=== PATIENT | male | born 1950 | race African-American/Black ===

== ENCOUNTER 2025-02-17 17:04 | Emergency (ER) | payer OTHER, MEDICAID ==
[~2025-02-17] VITALS: Ht 182.9 cm; Wt 95.0 kg
[2025-02-17 17:08] VITALS: TEMP 37.1; O2SAT 96
[2025-02-17] MEDS ORDERED: CLIN-116 MT (17:17)
[2025-02-17] MEDS ORDERED: IBUP-2029 MT (17:17)
[2025-02-17] MEDS ORDERED: CLIN-194 MT (17:17)
[2025-02-17 17:58] VITALS: BP 136/84; PULSE 72; RESP 18
[2025-02-17] MEDS: IBUPROFEN 600MG TABLET PO ONE (17:58)
== END 2025-02-17 18:06 | disposition home or self-care (01) ==
LOC: ER 17:04
DX: K61.1 Rectal abscess (principal); I10 Essential (primary) hypertension; Z88.0 Allergy status to penicillin
CPT/HCPCS: 99283

== ENCOUNTER 2025-02-18 22:11 | Inpatient (IN) | payer OTHER, MEDICAID, MEDICARE ==
[~2025-02-18] VITALS: Ht 182.9 cm; Wt 83.0 kg
[~2025-02-18 22:11] MED LIST: CLIN-116 MT; CLIN-194 MT; IBUP-2029 MT
[2025-02-18] MEDS: ACETAMINOPHEN 325MG TABLET PO ONE (23:01)
[2025-02-18 23:14] LABS: BASOPHILS % 0.2 % (0.0-2.0); DIFFERENTIAL COMMENT 0; EOSINOPHILS % 1.3 % (0.0-5.0); HEMATOCRIT. 34.2 % (42.0-52.0); HEMOGLOBIN. 10.5 g/dL (14.0-18.0); MEAN CORPUSCULAR HEMOGLOBIN 22.3 pg (28.0-32.0); MEAN CORPUSCULAR HGB CONC 30.7 g/dL (31.0-37.0); MEAN CORPUSCULAR VOLUME 72.9 fL (80.0-94.0); MEAN PLATELET VOLUME 7.2 fl (7.4-10.4); MONOCYTES % 7.9 % (2.0-8.0); NEUTROPHILS % 78.6 % (40.0-76.0); PLATELET 227 x1000/uL (130-400); WHITE BLOOD COUNT 10.5 x1000/uL (4.5-11.0)
[2025-02-18 23:23] LABS: POTASSIUM 3.6 mEq/L (3.5-5.1)
[2025-02-18 23:25] LABS: CALCIUM 8.6 mg/dL (8.7-10.4)
[2025-02-18 23:29] LABS: CREATININE 1.9 mg/dL (0.6-1.3)
[2025-02-19] MEDS: CLINDAMYCIN HCL 150MG CAPSULE PO ONE (02:12)
[2025-02-19] MEDS: CLINDAMYCIN HCL 150MG CAPSULE PO SCH (02:12)
[2025-02-19 07:56] LABS: CLARITY URINE CLEAR (CLEAR); COLOR URINE YELLOW (YELLOW); GLUCOSE URINE NEGATIVE (NEGATIVE); KETONES URINE NEGATIVE (NEGATIVE); LEUKOCYTE ESTERASE URINE NEGATIVE (NEGATIVE); NITRITE URINE NEGATIVE (NEGATIVE); OCCULT BLOOD URINE NEGATIVE (NEGATIVE); PH URINE 5.5 (4.5-8.0); PROTEIN URINE TRACE (NEGATIVE); SPECIFIC GRAVITY URINE 1.009 (1.005-1.030); UROBILINOGEN URINE 0.2 E.U./dL (0.2-1.0)
[2025-02-19] MEDS: SODIUM CHLORIDE 0.9% 1,000 ML IV ONE (08:04)
[2025-02-19 08:14] LABS: BACTERIA URINE NONE SEEN; RBC URINE NONE SEEN /hpf (0-2); SQUAMOUS EPITHELIAL CELL URINE NONE SEEN /lpf (RARE/1+); WBC URINE 0-2 /hpf (0-2); YEAST URINE NONE SEEN
[2025-02-19] MEDS ORDERED: DOCUSATE SODIUM 100MG CAPSULE PO PRN (10:45)
[2025-02-19] MEDS ORDERED: CEFEPIME 1GM IN DEXT 5% 50ML IV SCH (10:45)
[2025-02-19] MEDS ORDERED: IPRATROPIUM/ALBUTEROL 0.5-3(2.5)MG/3ML NEB HHN PRN (10:45)
[2025-02-19] MEDS ORDERED: ONDANSETRON HCL 4MG/2ML INJ IV PRN (10:45)
[2025-02-19] MEDS ORDERED: SODIUM CHLORIDE 0.9% 1,000 ML IV SCH (10:45)
[2025-02-19] MEDS ORDERED: GUAIFENESIN 200MG/10ML SUGAR FREE UDC PO PRN (10:45)
[2025-02-19] MEDS ORDERED: MAGNESIUM/ALUMINUM HYDROXIDE/SIMETHICONE 30ML UDC PO PRN (10:45)
[2025-02-19] MEDS ORDERED: HYDROCODONE/ACETAMINOPHEN 5/325MG TABLET PO PRN (10:45)
[2025-02-19] MEDS ORDERED: ACETAMINOPHEN 325MG TABLET PO PRN ×2 (10:45)
[2025-02-19 11:00] VITALS: BP 134/65; PULSE 100; RESP 18; TEMP 36.4
[2025-02-19] MEDS: AMLODIPINE 10MG TABLET PO SCH (11:00)
[2025-02-19] MEDS ORDERED: NALOXONE HCL 0.4MG/ML VIAL IV PRN (11:00)
[2025-02-19] MEDS: ENOXAPARIN 40MG/0.4ML SYR SUBCUT SCH (11:30)
[2025-02-19 12:00] VITALS: BP 148/87; PULSE 95; RESP 17; TEMP 36.1; O2SAT 98
[2025-02-19] MEDS: LEVOFLOXACIN 750MG PREMIX 150 ML IV SCH (14:13)
[2025-02-19] MEDS: METRONIDAZOLE 500 MG PREMIX 100 ML IV SCH (14:13)
[2025-02-19] MEDS: VANCOMYCIN 2GM PMX (XELLIA) 400 ML IV NR (14:13)
[2025-02-19 14:17] LABS: IRON 28 ug/dL (65-175)
[2025-02-19 14:18] LABS: URIC ACID 10.9 mg/dL (3.7-9.2)
[2025-02-19 14:19] LABS: PHOSPHORUS 2.6 mg/dL (2.5-4.9); TROPONIN I HIGH SENSITIVITY 10 ng/L (3.0-53)
[2025-02-19] MEDS: MORPHINE SULFATE 2 MG/ML INJ (NOT FOR IM USE) IV NR (14:19)
[2025-02-19 14:20] LABS: TOTAL IRON BINDING CAPACITY 280 ug/dl (250-425)
[2025-02-19 14:21] LABS: ALANINE AMINOTRANSFERASE 32 IU/L (10-49); ALBUMIN 3.6 g/dL (3.2-4.8); ASPARTATE AMINOTRANSFERASE 28 IU/L (<34); BILIRUBIN DIRECT 0.2 mg/dL (<=3.0); BILIRUBIN TOTAL 0.4 mg/dL (0.1-1.0)
[2025-02-19] MEDS: CLONIDINE 0.1MG TABLET PO PRN (14:29)
[2025-02-19 14:34] LABS: FOLIC ACID (FOLATE) SERUM 7.45 ng/mL (>5.38); VITAMIN B12 SERUM 322 pg/mL (211-911)
[2025-02-19 14:35] LABS: FERRITIN 18 ng/mL (22-322)
[2025-02-19 14:47] LABS: HEPATITIS B SURFACE ANTIGEN NEGATIVE (Negative)
[2025-02-19 15:07] LABS: HEPATITIS A AB IGM NEGATIVE (Negative)
[2025-02-19 15:08] LABS: HEPATITIS B CORE AB IGM NEGATIVE (Negative); HEPATITIS C AB NON REACTIVE (Neg) (Negative)
[2025-02-19 17:25] LABS: GLUCOSE URINE NEGATIVE (NEGATIVE); KETONES URINE NEGATIVE (NEGATIVE)
[2025-02-19 17:36] LABS: SODIUM URINE RANDOM 118 mEq/L
[2025-02-19 17:43] LABS: *AMPHETAMINES SCREEN URINE NEGATIVE (NEGATIVE); *BARBITURATES SCREEN URINE NEGATIVE (NEGATIVE); *BENZODIAZEPINES SCREEN URINE NEGATIVE (NEGATIVE); *COCAINE SCREEN URINE NEGATIVE (NEGATIVE); METHADONE URINE SCREEN NEGATIVE (NEGATIVE)
[2025-02-19 17:44] LABS: CANNABINOID URINE SCREEN NEGATIVE (NEGATIVE); ECSTASY MDMA SCREEN URINE NEGATIVE (NEGATIVE); OPIATES URINE SCREEN NEGATIVE (NEGATIVE); PHENCYCLIDINE URINE SCREEN NEGATIVE (NEGATIVE)
[2025-02-19 18:02] LABS: OSMOLALITY URINE 433 mOsm/kg (500-850)
[2025-02-19 18:13] LABS: CLARITY URINE CLEAR (CLEAR); COLOR URINE STRAW (YELLOW); LEUKOCYTE ESTERASE URINE NEGATIVE (NEGATIVE); NITRITE URINE NEGATIVE (NEGATIVE); OCCULT BLOOD URINE NEGATIVE (NEGATIVE); PH URINE 5.5 (4.5-8.0); PROTEIN URINE TRACE (NEGATIVE); SPECIFIC GRAVITY URINE 1.012 (1.005-1.030); UROBILINOGEN URINE 0.2 E.U./dL (0.2-1.0)
[2025-02-19 18:15] LABS: BACTERIA URINE NONE SEEN; RBC URINE NONE SEEN /hpf (0-2); SQUAMOUS EPITHELIAL CELL URINE NONE SEEN /lpf (RARE/1+); URIC ACID CRYSTALS URINE 1+ /lpf; WBC URINE 0-2 /hpf (0-2)
[2025-02-19 20:00] VITALS: BP 151/99; PULSE 104; RESP 20; TEMP 37; O2SAT 100
[2025-02-19 21:36] LABS: TROPONIN I HIGH SENSITIVITY 9 ng/L (3.0-53)
[2025-02-19 21:42] LABS: CREATINE KINASE < 15 IU/L (46-171)
[2025-02-19] MEDS: MORPHINE SULFATE 2 MG/ML INJ (NOT FOR IM USE) IV PRN (23:01)
[2025-02-20] VITALS: BP 154/107; PULSE 100; RESP 19; TEMP 36.3; O2SAT 98
[2025-02-20 04:00] VITALS: BP 154/90; PULSE 80; RESP 18; TEMP 36.7; O2SAT 99
[2025-02-20 07:10] LABS: BASOPHILS % 0.5 % (0.0-2.0); DIFFERENTIAL COMMENT 0; HEMATOCRIT. 31.5 % (42.0-52.0); HEMOGLOBIN. 9.8 g/dL (14.0-18.0); LYMPHOCYTES % 9.8 % (20.0-50.0); MEAN CORPUSCULAR HEMOGLOBIN 22.3 pg (28.0-32.0); MEAN PLATELET VOLUME 7.5 fl (7.4-10.4); MONOCYTES % 6.4 % (2.0-8.0); NEUTROPHILS % 82.3 % (40.0-76.0); PLATELET 203 x1000/uL (130-400); RED BLOOD CELL COUNT 4.38 mill/uL (4.7-6.1); RED CELL DISTRIBUTION WIDTH 17.9 % (11.6-14.6); WHITE BLOOD COUNT 8.7 x1000/uL (4.5-11.0)
[2025-02-20 07:15] LABS: CALCIUM 8.4 mg/dL (8.7-10.4)
[2025-02-20 07:19] LABS: T4 FREE 1.2 ng/dL (0.89-1.76); THYROID STIMULATING HORMONE 1.1 uIU/mL (0.55-4.78)
[2025-02-20 07:21] LABS: CREATININE 1.4 mg/dL (0.6-1.3)
[2025-02-20 08:00] VITALS: BP 158/93; PULSE 91; RESP 18; TEMP 36.8; O2SAT 97
[2025-02-20] MEDS: ENOXAPARIN 80MG/0.8ML SYR SUBCUT NR (09:41)
[2025-02-20] MEDS ORDERED: CLIN-194 MT (10:34)
[2025-02-20 11:01] LABS: INR 1.2; PROTHROMBIN TIME 12.3 sec (9.6-11.0)
[2025-02-20 12:00] VITALS: BP 130/79; PULSE 94; RESP 17; TEMP 36.4; O2SAT 95
[2025-02-20] MEDS: VANCOMYCIN 750MG PREMIX 150 ML IV SCH (12:20)
[2025-02-20 12:39] VITALS: BP 130/79; PULSE 94; TEMP 97.5; O2SAT 95
[2025-02-20] MEDS ORDERED: METRONIDAZOLE 500MG TABLET PO SCH (14:00)
[2025-02-20] MEDS ORDERED: VANCOMYCIN 1GM/200ML PMX (BAXTER) IV SCH (18:00)
[2025-02-20] MEDS ORDERED: ENOXAPARIN 80MG/0.8ML SYR SUBCUT SCH (21:00)
[2025-02-21] MEDS ORDERED: LEVOFLOXACIN 250MG TABLET PO SCH (13:00)
== END 2025-02-20 13:20 | disposition home or self-care (01) | DRG 603 ==
LOC: ER 22:11 → 6EST 02-19 07:15 → 6WST 02-19 14:16
PROVIDERS: ADMIT Hospitalist; ATTEND Hospitalist
DX: L03.317 Cellulitis of buttock (principal); N17.9 Acute kidney failure, unspecified; I13.0 Hypertensive heart and chronic kidney disease with heart failure and stage 1 through stage 4 chronic kidney disease, or unspecified chronic kidney disease; E83.51 Hypocalcemia; D50.9 Iron deficiency anemia, unspecified; I25.10 Atherosclerotic heart disease of native coronary artery without angina pectoris; E78.5 Hyperlipidemia, unspecified; I50.9 Heart failure, unspecified; I48.91 Unspecified atrial fibrillation; F10.20 Alcohol dependence, uncomplicated; K80.20 Calculus of gallbladder without cholecystitis without obstruction; K62.89 Other specified diseases of anus and rectum; N18.30 Chronic kidney disease, stage 3 unspecified; M10.9 Gout, unspecified; Y90.9 Presence of alcohol in blood, level not specified; J84.10 Pulmonary fibrosis, unspecified; K75.3 Granulomatous hepatitis, not elsewhere classified; Z79.899 Other long term (current) drug therapy; Z88.0 Allergy status to penicillin; Z88.1 Allergy status to other antibiotic agents; Z88.8 Allergy status to other drugs, medicaments and biological substances; D73.89 Other diseases of spleen
CPT/HCPCS: 36415; 74176; 76770; 80048; 80061; 80076; 80305; 81003; 82306; 82550; 82607; 82728; 82746; 83036; 83540; 83550; 83605; 83735; 83880; 83930; 83935; 83970; 84100; 84145; 84300; 84439; 84443; 84484; 84550; 85025; 86592; 86705; 86709; 87340; 93005; 99285; J1650; J1956; J2270; J3370; J3490